=== PATIENT | female | born 1970 | race Caucasian/White ===

== ENCOUNTER 2020-03-18 00:40 | Emergency (ER) | payer OTHER ==
[~2020-03-18] VITALS: Ht 154.9 cm; Wt 81.6 kg
[~2020-03-18 00:40] MED LIST: ATROVENT HFA12.9 GM INH; CLARITIN10 M2 PO; HYDROXYZINE PAM25 MG PO
[2020-03-18] MEDS ORDERED: IBU600 MG PO (01:25)
== END 2020-03-18 01:45 | disposition home or self-care (01) ==
LOC: ED 00:40
DX: S90.822A Blister (nonthermal), left foot, initial encounter (principal); S90.821A Blister (nonthermal), right foot, initial encounter; X58.XXXA Exposure to other specified factors, initial encounter; J45.909 Unspecified asthma, uncomplicated; I10 Essential (primary) hypertension; Z88.0 Allergy status to penicillin; Z88.8 Allergy status to other drugs, medicaments and biological substances; Z88.2 Allergy status to sulfonamides; Z88.1 Allergy status to other antibiotic agents
CPT/HCPCS: 99283; A9270

== ENCOUNTER 2022-05-22 16:35 | Emergency (ER) | payer OTHER ==
[~2022-05-22] VITALS: Ht 154.9 cm; Wt 85.7 kg
[~2022-05-22 16:35] MED LIST changes: +IBU600 MG PO
[2022-05-22] MEDS ORDERED: PREDNISONE20 MG PO (17:48)
[2022-05-22] MEDS ORDERED: HYDROCORTISONE30 G1 PR (17:48)
== END 2022-05-22 18:04 | disposition home or self-care (01) ==
LOC: ED 16:35
DX: L25.9 Unspecified contact dermatitis, unspecified cause (principal); J45.909 Unspecified asthma, uncomplicated; I10 Essential (primary) hypertension; Z88.8 Allergy status to other drugs, medicaments and biological substances; Z88.0 Allergy status to penicillin; Z88.2 Allergy status to sulfonamides; Z88.1 Allergy status to other antibiotic agents
CPT/HCPCS: 99282

== ENCOUNTER 2024-07-19 01:05 | Emergency (ER) | payer OTHER ==
[~2024-07-19] VITALS: Ht 154.9 cm; Wt 79.3 kg
[~2024-07-19 01:05] MED LIST changes: +HYDROCORTISONE30 G1 PR; +PREDNISONE20 MG PO
[2024-07-19] MEDS ORDERED: ondansetron HCL 4 MG/2 ML VIAL IV ONE ×2 (01:30→03:30)
[2024-07-19] MEDS ORDERED: FAMOTIDINE 20 MG/ 2 ML VIAL IV ONE (01:30)
[2024-07-19] MEDS ORDERED: fentaNYL citrate 100 MCG/2 ML VIAL IV ONE (01:30)
[2024-07-19] MEDS ORDERED: DIPHTH,PERTUSS(ACELL),TET VAC 0.5 ML SYRINGE IM ONE (01:30)
[2024-07-19 02:06] LABS: BASOPHILS 0.7 % (0-2); EOSINOPHILS 2.7 % (0-6); HEMOGLOBIN 14.9 g/dL (12.0-18.0); MCH 33.1 (27-36); MCHC 35.5 g/dl (30-36); MCV 93.4 fl (81-99); MONOCYTES 4.1 % (0-12); NEUTROPHILS 55.5 % (39-80); PLATELET COUNT 229 K/uL (140-440); RDW 12.3 (10.5-15.0)
[2024-07-19 02:21] LABS: ALBUMIN 3.1 g/dL (3.4-5.0); ALBUMIN/GLOBULIN RATIO 0.58 (1.1-2.4); ANION GAP 12.1 (7-21); BILIRUBIN, TOTAL 0.4 mg/dL (0.2-1.0); BUN/CREATININE RATIO 7.46 (6.0-28.6); CREATININE, SERUM 0.67 mg/dL (0.55-1.02); POTASSIUM 3.1 mmol/L (3.5-5.1); PROTEIN, TOTAL 8.4 g/dL (6.4-8.2)
[2024-07-19] MEDS ORDERED: LACTATED RINGER'S 1,000 ML IV ONE (02:30)
[2024-07-19 02:41] LABS: ABO A; RH POSITIVE
[2024-07-19 02:42] LABS: ANTIBODY SCREEN NEGATIVE
[2024-07-19] MEDS ORDERED: ONDANSETRON ODT4 MG PO (03:29)
[2024-07-19] MEDS ORDERED: ONDANSETRON 4 MG HOME.PACK SL ONE (03:30)
[2024-07-19 03:50] LABS: BILIRUBIN, URINE NEGATIVE (negative); BLOOD/HGB, URINE NEGATIVE (Negative); KETONE, URINE NEGATIVE (Negative); LEUK ESTERASE, URINE NEGATIVE (negative); NITRITE, URINE NEGATIVE (negative)
[2024-07-19 04:04] LABS: AMPHETAMINES, URINE NEGATIVE (NEGATIVE); BARBITURATES, URINE NEGATIVE (NEGATIVE); BENZODIAZEPINE, URINE NEGATIVE (NEGATIVE); BUPRENORPHINE, URINE NEGATIVE (NEGATIVE); CANNABINOID, URINE NEGATIVE (NEGATIVE); COCAINE, URINE NEGATIVE (NEGATIVE); ECSTASY, URINE NEGATIVE (NEGATIVE); FENTANYL, URINE NEGATIVE (NEGATIVE); METHADONE, URINE NEGATIVE (NEGATIVE); OPIATES, URINE NEGATIVE (NEGATIVE); OXYCODONE, URINE NEGATIVE (NEGATIVE); PHENCYCLIDINE, URINE NEGATIVE (NEGATIVE)
[2024-07-19 05:22] VITALS: BP 179/110
== END 2024-07-19 05:20 | disposition home or self-care (01) ==
LOC: ED 01:05
PROVIDERS: Internal Medicine
DX: S01.01XA Laceration without foreign body of scalp, initial encounter (principal); S70.312A Abrasion, left thigh, initial encounter; S00.83XA Contusion of other part of head, initial encounter; F10.90 Alcohol use, unspecified, uncomplicated; J45.909 Unspecified asthma, uncomplicated; I10 Essential (primary) hypertension; W01.0XXA Fall on same level from slipping, tripping and stumbling without subsequent striking against object, initial encounter; Z88.1 Allergy status to other antibiotic agents; Z88.0 Allergy status to penicillin; Z88.2 Allergy status to sulfonamides; Z88.8 Allergy status to other drugs, medicaments and biological substances
CPT/HCPCS: 36415; 70450; 70486; 72125; 80053; 80307; 81003; 85025; 86850; 86900; 86901; 90471; 90715; 96361; 96374; 96375; 96376; 99284-25; A9270; G0480; J2405; J3010; J7121